=== PATIENT | female | born 1985 | race Caucasian/White ===

== ENCOUNTER 2016-04-12 05:24 | Inpatient (IN) | payer OTHER, MEDICAID ==
[2016-04-12] MEDS ORDERED: LIDOCAINE 1% 30 ML VIAL (PRESERVATIVE FREE) ONE (05:36)
[2016-04-12] MEDS ORDERED: LR 1,000 ML IV ONE (05:36)
[2016-04-12] MEDS ORDERED: OXYTOCIN 1,000 ML IV ONE ×2 (05:36→12:53)
[2016-04-12] MEDS ORDERED: Clindamycin 900 mg/D5W 50 ml 900 MG/50 ML IVB IV SCH (05:37)
[2016-04-12] MEDS ORDERED: LR 500 ML IV PRN ×2 (05:37→11:53)
[2016-04-12] MEDS ORDERED: OXYTOCIN 1,000 ML IV SCH (05:37)
[2016-04-12 06:04] VITALS: BMI 21.0
[2016-04-12 06:10] LABS: AUTOMATED BASOPHIL 0.8 % (0-2); AUTOMATED LYMPH 23.3 % (17-44); AUTOMATED MONOCYTE 9.2 % (3-10); AUTOMATED NEUTROPHIL 63.7 % (45-76); MPV 8.6 fL (7.4-10.4)
[2016-04-12] MEDS ORDERED: Vaccine Screening Complete SCH (08:00)
--- NOTE | 2016-04-12 09:20 | HISTPHYS ---
- HISTORY OF PRESENT ILLNESS Age: 30 Estimated Due Date: 04/17/16 Gestational Age: 39 : 3 Para: 2 Patient Presents to:: Labor & Delivery Presents for:: Induction of Labor Current : GBS +, Other Complications (fetus with 2 vessel cord) - REVIEW OF SYSTEMS Reports/Denies: Reports: Movement. Denies: Vaginal Bleeding, Contractions , Leaking Fluid Pain: Reports: Abdominal - ALLERGIES Allergies Allergy/AdvReac Type Severity Reaction Status Date / Time Penicillins Allergy Severe Unknown Verified 04/12/16 06:06 - PAST MEDICAL HISTORY Reports: Mental Illness (depression) - PAST SURGICAL HISTORY Reports: None - SOCIAL HISTORY Smoking Status: Former smoker Social History: Denies: Amphetamine Use, Alcohol Use, Barbiturate Use, Benzodiazipine Use, Cocaine Use, Heroin Use, Marijuana Use, Methadone Use, MDMA (Ecstasy) Use, Substance Use Disorder - GENITOURINARY HISTORY HX : 3 Para: 2 Live Deliveries (# of pregnancies resulting in a live ): 2 1 Weight: 6 14 2 Sex: Female Weight: 6-14 Weeks Gestation: 36 - PHYSICAL EXAM Vital Signs:: Temperature: 97.8 F (04/12/16 06:04) HR: 82 (04/12/16 06:04) RR: 20 (04/12/16 06:04) BP: 105/61 (04/12/16 06:04) Pulse Ox: () 04/12/16 05:50 GENERAL: Alert, Oriented, No Acute Distress HEENT: Normal ABDOMEN: Gravid, Non-Distended, Non-Tender, Soft Fundal Height (cm): 39 GENITOURINARY: Normal. negative: Lesions, Rash MUSCULOSKELETAL: Normal EXTERMITIES: Moves All Extremeties BAKARI'S SIGN: negative: Bilateral Dilation (cm): 4 Effacement (%): 70 Station: -1 Heart Rate: 150's Reactive Contractions: Regular Membranes: AROM (clear fluid) Amniotic Fluid: Clear - ASSESSMENT (ACTIVE PROBLEMS) (1) 39 weeks gestation of Acute Z3A.39 - 39 WEEKS GESTATION OF (2) Elective induction of labor planned Acute [id number] - (3) GBS (group B Streptococcus carrier), +RV culture, currently Acute O99.820 - STREPTOCOCCUS B CARRIER STATE COMPLICATING - PLAN Continue Present Management, Amniotomy, GBS Prophylaxis, High Dose Pitocin
[2016-04-12] MEDS ORDERED: BUTORPHANOL 1 MG/ML VIAL IV PRN (09:54)
[2016-04-12] MEDS ORDERED: BUTORPHANOL 1 MG/ML VIAL ONE (09:58)
[2016-04-12] MEDS ORDERED: LIDOCAINE 2% 10 ML (PRESERVATIVE FREE) VIAL INF ONE (10:00)
--- NOTE | 2016-04-12 11:20 | OBGYNPROG ---
- Exam Monitor Mode: External(US) Heart Rate: 140's Moderate Variability, Accelerations (occasional) Contraction Pattern: Regular Contraction Frequency: q 2-3 min Vaginal Bleeding: None Dilation (cm): 6.5 Effacement (%): 90 Station: -1 Membranes: AROM Amniotic Fluid: Clear - Plan Continue High Dose Pitocin pt offered epidural, but is still thinking about it
[2016-04-12] MEDS ORDERED: Fentanyl/Bupivacaine 100 ML EPI ONE (11:23)
[2016-04-12] MEDS: LR 1,000 ML IV SCH ×2 (11:49→19:35)
[2016-04-12] MEDS ORDERED: LR 500 ML IV ONE (11:53)
[2016-04-12] MEDS ORDERED: NALOXONE 0.4 MG/ML AMPULE IV PRN (11:53)
[2016-04-12] MEDS ORDERED: ONDANSETRON HCL 4 MG/2 ML VIAL IV PRN (11:53)
[2016-04-12] MEDS ORDERED: METOCLOPRAMIDE 10 MG/2 ML VIAL IV PRN (11:53)
[2016-04-12] MEDS ORDERED: DIPHENHYDRAMINE 50 MG/ML VIAL IV PRN (11:53)
[2016-04-12] MEDS ORDERED: EPHEDrine 50 MG/ML VIAL IV PRN (11:53)
--- NOTE | 2016-04-12 11:54 | HIM.ANES ---
Anesthesia Evaluation & Plan - Focused Review of Systems Cardiac History: No: Hx Cardiac Disorders HEENT: Yes: Hx Vision Problem (wears glasses), Other HEENT Problems Hx Other HEENT Surgery: wisdom teeth Respiratory: Yes: Hx Asthma (asthma as a child-no current rx) Gastrointestinal: Yes: Hx Gastroesophageal Reflux Disease, Hx Gastrointestinal Disorders, Hx Chronic Constipation Neurological/Musculoskeletal: Yes: Hx Migraine, Hx Back Pain No: Hx Neurological Disorders Psychological: Yes Hx Anxiety, Yes Hx Depression, Yes Hx Mental/Emotional Disorders HX Other Psyco/Soc Problems: PREVIOUSLY ON MEDS FOR BOTH Blood/Autoimmune: Yes: Hx Anemia (take iron) No: Hx AIDS, Hx Hepatitis (type) Smoking Status: Former smoker Past Social History: Denies: Amphetamine Use, Alcohol Use, Barbiturate Use, Benzodiazipine Use, Cocaine Use, Heroin Use, Marijuana Use, Methadone Use, MDMA (Ecstasy) Use, Substance Use Disorder Surgical History: Yes: T&A (6 year old) Other Surgical History: wisdom teeth wisdom teeth removed 2004 - Focused Physical Exam Mallampati: Class II Thyromental Distance: Greater than 3 Neck: Full Range of Motion Dental: Normal - no significant findings Cardiovascular/Chest: Normal Respiratory: Lungs clear Any problems with anesthesia, including nausea and vomiting?: No Any relatives with a history of Malignant Hyperthermia?: No Other: Problem List Problem Status Onset 39 weeks gestation of Acute Elective induction of labor planned Acute GBS (group B Streptococcus carrier), +RV culture, currently Acute Abdominal pain in Acute Cervicitis Acute Dehydration Acute False labor after 37 completed weeks of gestation Acute Ketonuria Acute Nausea and vomiting in Acute Placental abruption, delivered Acute Acute Vaginal delivery Acute CBC/BMP/Other 04/12/16 05:50 Allergies Allergy/AdvReac Type Severity Reaction Status Date / Time Penicillins Allergy Severe Unknown Verified 04/12/16 06:06 Home Medications Medication Instructions Recorded Last Taken Type Vits W-Ca,Fe,FA(<1Mg) 1 each PO DIR 12/28/15 04/12/16 03:00 History [] Y Ferrous Sulfate [Feratab] 300 mg PO DAILY 01/28/16 04/12/16 03:00 History Y Ergocalciferol (Vitamin D2) 400 unit PO DAILY 03/12/16 04/12/16 03:00 History [Vitamin D] Y Ranitidine HCl [Zantac] 150 mg PO BID 04/05/16 04/12/16 History Y Height and Weight Patient's height 5 ft 2 in Patient's weight 61.235 kg BMI 21.0 Vital Signs Temperature 97.8 F 04/12/16 06:04 Pulse Rate 82 04/12/16 06:04 Respiratory Rate 20 04/12/16 06:04 Blood Pressure 105/61 04/12/16 06:04 Pulse Oxygen Saturation - Anesthetic Plan Anesthesia Type: Epidural ASA Class: 2 -: I have examined this patient and reviewed the medical record. The patient has been assessed prior to anesthesia. Risks and benefits of anesthesia and anesthetic technique options have been discussed and all questions answered. The patient accepts the risk and desires me to proceed with the planned anesthetic.
--- NOTE | 2016-04-12 11:55 | HIM.ANESP ---
Procedure Note DATE OF PROCEDURE: 04/12/16 PREOPERATIVE DIAGNOSIS: Labor Pain Control. POSTOPERATIVE DIAGNOSIS: Same PROCEDURE: Epidural PERFORMING PROVIDER: Ehsan Kenyon MD DIAGNOSIS: Labor SURGEON: Deric[] TIME OUT: [1131] Anesthesia START time: [1132] Anesthesia STOP (Delivery) Time : MEDICATIONS: INF Bupivacaine 0.125% + Fentanyl 3mcg/ml ml/hr NEEDLE: Tuohy 17G STERILE BARRIERS: sterile x 3, mask, sterile gloves. APPROACH: [Midline] ATTEMPTS:[1] COMPLICATIONS: None. BLOOD LOSS: 0 cubic centimeters. PROCEDURE FINDINGS AND TECHNIQUE: At the request of the patient and feather separator , an Epidural Block was performed for labor pain relief. Epidural Risk, benefits and alternatives of the procedure were explained and questions answered. Informed consent was obtained, confirmed with patient and on chart. Time out was performed. Contraction, Pulse oximetry, EKG and BP monitoring were established. The patient is a [sitting] position and lumbar area was prepped and draped in a sterile manner. Skin anesthesia was obtained with 1% Xylocaine infiltration. The [Epidural]was done in the usual manner. A Tuohy needle was inserted with loss of resistance to [NS][air] @ [7]cm. Local anesthetic was injected in incremental volumes with negative aspirations throughout, Bolus dose: Lidocaine [2] % [8] cc. There was no pain on injection. Epidural catheter threaded [5] cm into epidural space. Test dose Lidocaine 1.5 % with epinephrine 1:200,000, 3 ml via epidural catheter. Negative test dose. SaO2 [98]% EKG SR Loading Dose 0 mcg/ml Fentanyl Infusing Dose Bupivacaine 0.125% + Fentanyl 3mcg/ml ml/hr See Watch Child Record (chart) Patient tolerated the procedure well without complications.
[2016-04-12] MEDS ORDERED: Fentanyl/Bupivacaine 100 ML EPI SCH (12:00)
--- NOTE | 2016-04-12 12:50 | OBDELNOTE ---
Delivery Note - Problem/Diagnosis (1) 39 weeks gestation of Status: Acute (2) Elective induction of labor planned Status: Acute (3) GBS (group B Streptococcus carrier), +RV culture, currently Status: Acute (4) Single live Status: Acute (5) Vaginal delivery Status: Acute - Admitting Diagnosis Reason for Visit: Induction of Labor Admission Date: 04/12/16 Admission time: 05:46 Gestational Age: 39 - Procedures Procedure(s): None Labor Anesthesia/Analgesia: Epidural Date: 04/12/16 Time: 12:39 Spontaneous Vaginal Delivery Presentation: Vertex Episiotomy: None Laceration: None EBL: 200 Fluid: Clear Placenta: Spontaneous Description: Normal, Complete Cord: 2 Vessels. Denies: Nuchal Cord, True Knot - Procedures Procedures: None - Data Order: Mckeon Sex: Female Weight: 3.079 kg (1min): 9 (5min): 9 Feeding Plans for : Breast Plans Circumcision: No [place] Complications: No Complications to:: LDRP/Mother's Room - /Operative Complications /Op Complications: None Discharge Planning - REASON FOR ADMISSION Patient Presents to:: Labor & Delivery Reason for Visit: Induction of Labor - DISCHARGE INSTRUCTIONS
[2016-04-12] MEDS ORDERED: SODIUM CHLORIDE 0.9% 3 ML FLUSH FLUSH PRN (12:53)
[2016-04-12] MEDS ORDERED: DIBUCAINE OINTMENT 1 OZ TUBE TOP PRN (12:53)
[2016-04-12] MEDS ORDERED: ACETAMINOPHEN 325 MG/TAB TABLET PO PRN (12:53)
[2016-04-12] MEDS ORDERED: LANOLIN OINTMENT 0.25 OZ TUBE TOP PRN (12:53)
[2016-04-12] MEDS ORDERED: BISACODYL 10 MG SUPP PR PRN (12:53)
[2016-04-12] MEDS ORDERED: HYDROCORTISONE 25 MG SUPP PR PRN (12:53)
[2016-04-12] MEDS ORDERED: ZOLPIDEM TARTRATE 5 MG TAB PO PRN (12:53)
[2016-04-12] MEDS ORDERED: OXYCODONE HCL 5 MG TABLET PO PRN (12:53)
--- NOTE | 2016-04-12 12:53 | PCM.DCS92 ---
<Julius Leos - Last Filed: 04/12/16 12:50> - Primary/Secondary Discharge Diagnoses (1) 39 weeks gestation of Acute Z3A.39 - 39 WEEKS GESTATION OF (2) Elective induction of labor planned Acute [id number] - (3) GBS (group B Streptococcus carrier), +RV culture, currently Acute O99.820 - STREPTOCOCCUS B CARRIER STATE COMPLICATING (4) Single live Acute Z37.0 - SINGLE LIVE (5) Vaginal delivery Acute O80 - ENCOUNTER FOR FULL-TERM UNCOMPLICATED DELIVERY - HOSPITAL COURSE /Op Complications: None - DISCHARGE INSTRUCTIONS Discharge Disposition: Home Discharge Condition: Good Cognitive Discharge Status: Unimpaired Fuctional Discharge Status: Independent Patient Leaving with Prescriptions?: Yes Prescriptions: Ibuprofen Tablet [Motrin] 800 mg PO Q6-8H PRN #30 tab PRN Reason: Pain Oxycodone HCl/Acetaminophen [Percocet 5-325 mg Tablet] 1 - 2 tab PO Q4H PRN #10 tab PRN Reason: Pain Referrals: Julius Leos MD [Staff Physician] - 05/26/16 10:15 am - Diet Diet at Discharge: Regular - Activity Activity: Pelvic Rest (6-8 weeks) No Driving for: While using pain medications (especially percocet) - Instructions Call Physician for: Sudden/Sever Chest Pain, Pain/Redness in Calf/Leg, Temperature Above 100.4 Discontinue use of:: Alcohol, All Illegal Substances, All Types of Tobacco - Incision Incision, Lacerations, or Tears: No - DC Summary Notes Discharge Medications: *See "Discharge Medication List" for a complete list of Home Medications and Discharge Medications.* Obstetric Hospital Course - Admitting Diagnosis Reason for Visit: Induction of Labor Admission Date: 04/12/16 Admission time: 05:46 Gestational Age: 39 - Procedures Procedure(s): None Labor Anesthesia/Analgesia: Epidural Date: 04/12/16 Time: 12:39 Spontaneous Vaginal Delivery Presentation: Vertex Episiotomy: None Laceration: None EBL: 200 Fluid: Clear Placenta: Spontaneous Description: Normal, Complete Cord: 2 Vessels. Denies: Nuchal Cord, True Knot - Procedures Procedures: None - Data Order: Mckeon Infant Sex: Female Weight: 3.079 kg (1min): 9 (5min): 9 Feeding Plans for : Breast Plans Circumcision: No Complications: No Complications [place] to:: LDRP/Mother's Room - /Operative Complications /Op Complications: None <Varsha Kaur - Last Filed: 04/13/16 09:47> - DC Summary Notes Discharge Medications: *See "Discharge Medication List" for a complete list of Home Medications and Discharge Medications.*
[2016-04-12] MEDS ORDERED: Pharmacy Order Set Alert SCH (13:00)
[2016-04-12] MEDS: IBUPROFEN 800 MG TAB PO SCH ×2 (13:52→20:28)
[2016-04-12] MEDS ORDERED: SODIUM CHLORIDE 0.9% 3 ML FLUSH FLUSH SCH (18:00)
[2016-04-12] MEDS ORDERED: FERROUS SULFATE 324 MG TAB PO SCH (18:00)
[2016-04-12] MEDS ORDERED: LR 1,000 ML IV SCH (19:53)
[2016-04-12] MEDS ORDERED: Docusate Sodium 100 MG CAP PO SCH (21:00)
[2016-04-12 23:10] VITALS: PULSE 75
[2016-04-12] MEDS ORDERED: SIMETHICONE 80 MG TAB PO ONE (23:25)
[2016-04-13] MEDS: IBUPROFEN 800 MG TAB PO SCH ×2 (03:14→08:47)
[2016-04-13 05:25] VITALS: BP 102/59; TEMP 97.6
[2016-04-13] MEDS ORDERED: ONDANSETRON HCL 4 MG/2 ML VIAL IV PRN (08:16)
--- NOTE | 2016-04-13 09:47 | OBGYNPROG ---
- Subjective Post Day: 1 Reports: Ambulating, Out of Bed, Tolerating Regular Diet, Voiding Freely. Denies: Complaints Pain: Reports: Well Managed - Objective Vital Signs: Temperature: 97.6 F (04/13/16 05:23) HR: 75 (04/13/16 05:23) RR: 18 (04/13/16 05:23) BP: 102/59 (04/13/16 05:23) Pulse Ox: () Laboratory Results - last 24 hr 04/12/16 04/13/16 05:50 06:25 Hgb 8.5 L Hct 26.1 L RPR Nonreactive General: Alert, Oriented, No Acute Distress HEENT: Normal Cardiovascular/Chest: Normal Respiratory: Normal - CTA ABDOMEN: Soft MUSCULOSKELETAL: Normal EXTERMITIES: Moves All Extremeties. Denies: Edema OBGYN Progress Note - PLAN Routine Care, Discharge
[2016-04-13] MEDS ORDERED: VITAMINS,PRENATAL TABLET PO SCH (12:00)
== END 2016-04-13 16:23 | disposition home or self-care (01) | DRG 775 ==
LOC: MASU 05:24
PROVIDERS: ADMIT Obstetrics & Gynecology; ATTEND Obstetrics & Gynecology
PROC: 10E0XZZ Delivery of Products of Conception, External Approach (ICD-10-PCS; principal; 2016-04-12)
PROC: 3E0S3CZ (ICD-10-PCS; 2016-04-12)
PROC: 10907ZC Drainage of Amniotic Fluid, Therapeutic from Products of Conception, Via Natural or Artificial Opening (ICD-10-PCS; 2016-04-12)
DX: O99.824 Streptococcus B carrier state complicating childbirth (principal); Z37.0 Single live birth; Z3A.39 39 weeks gestation of pregnancy; Z87.891 Personal history of nicotine dependence
CPT/HCPCS: 59400; 62318; 81002; 85014; 85018; 85025; 86592; 86900; 86901; 96361; 96365; 96366; 96368; 96375; J0595; J2001; J2405; J2590; J3490; S0077

== ENCOUNTER 2016-04-15 14:42 | Observation (INO) | payer OTHER, MEDICAID ==
[2016-04-15 15:19] VITALS: BMI 24.1
[2016-04-15 15:35] LABS: AUTOMATED BASOPHIL 0.5 % (0-2); AUTOMATED EOSINOPHIL 3.5 % (0-5); AUTOMATED LYMPH 17.5 % (17-44); AUTOMATED MONOCYTE 6.9 % (3-10); AUTOMATED NEUTROPHIL 71.6 % (45-76); MPV 8.1 fL (7.4-10.4)
[2016-04-15 15:43] LABS: BLOOD UREA NITROGEN 7 MG/DL (7-17); CALC CORRECTED 9.2 MG/DL (8.4-10.2); CALCIUM 8.7 MG/DL (8.4-10.2); CALCULATED OSMOLALITY 260 MOs/Kg (270-290); CHLORIDE 101 mEq/L (98-107); GLUCOSE 92 MG/DL (70-99); SODIUM LEVEL 136 mEq/L (137-146); TOTAL PROTEIN 6.6 G/DL (6.3-8.2)
[2016-04-15] MEDS ORDERED: NS 1,000 ML IV ONE ×3 (15:45→22:35)
[2016-04-15] MEDS ORDERED: PROMETHAZINE 25 MG/ML VIAL IV ONE ×2 (15:45→19:40)
--- NOTE | 2016-04-15 15:51 | EDPRACDOC ---
- General Information Chief Complaint: Nausea,Vomiting,Diarrhea Stated Complaint: 3 DAYS - VOMITING/FEVER Time Seen by Provider: 04/15/16 15:34 Information Source: Patient, Family Mode Of Arrival: Car Home Medications: Home Medications Vits W-Ca,Fe,FA(<1Mg) [] 1 tab PO DAILY 12/28/15 Ergocalciferol (Vitamin D2) [Vitamin D] 400 unit PO DAILY 03/12/16 Ranitidine HCl [Zantac] 150 mg PO BID 04/05/16 Ibuprofen Tablet [Motrin] 800 mg PO Q6-8H PRN #30 tab 04/12/16 Oxycodone HCl/Acetaminophen [Percocet 5-325 mg Tablet] 1 - 2 tab PO Q4H PRN #10 tab 04/12/16 Ferrous Sulfate [Feosol] 325 mg PO DAILY 04/15/16 Ondansetron HCl [Zofran] 4 mg PO Q6H PRN 04/15/16 Promethazine [Phenergan] 25 mg PO Q8H PRN #10 tab 04/15/16 Allergies/Adverse Reactions: Allergies Allergy/AdvReac Type Severity Reaction Status Date / Time Penicillins Allergy Severe Unknown Verified 04/15/16 15:19 - History of Present Illness Onset: 3 days HPI: Patient reports she had a vaginal delivery 3 days ago, discharged yesterday, reports nausea/vomiting since. Has called OB who called in Zofran which has not helped per patient. States unable to tolerate liquid diet. Denies abdominal pain , states all of the vomiting is making her feel weak, reports fever of 99.7F. Symptoms Occured: Reports: Spontaneous Duration: Reports: Episodes of Vomiting Emesis: Reports: Bilious, Food Particles Pain Severity: 2 Pain Location: Reports: Diffuse : No History of: Reports: UTI Associated Signs & Symptoms: Reports: Nausea, Vomiting. 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 Denies: Substance Use Disorder Systemic History: Reports: Anemia (take iron). Denies: Cancer Surgical History: Reports: Tonsillectomy/Adnoidectomy (6 year old). Denies: Hysterectomy - Family Medical History Reports: Diabetes (MGF), Cancer (FATHER, PGM), Stroke (MGF). Denies: Hypertension, Cardiac Disorders - Social Medical History Smoking Status: Former smoker Social History: Denies: Amphetamine Use, Barbiturate Use, Benzodiazipine Use, Cocaine Use, Heroin Use, Marijuana Use, Methadone Use, MDMA (Ecstasy) Use, Substance Use Disorder ETOH: None Substance Abuse: None Lives In: Home EDM Review of Systems - Review of Systems ROS Negative Except as Marked: Yes All systems reviewed and were negative except as marked Constitutional: Fatigue Eyes: No Symptoms Reported Ears: No Symptoms Reported Throat: No Symptoms Reported Respiratory: No Symptoms Reported Cardiovascular: No Symptoms Reported Gastrointestinal: Nausea, Pain, Vomiting Musculoskeletal: No Symptoms Reported Integumentary: No Symptoms Reported - Physical Exam Constitutional: Alert (Awake), No apparent distress Oriented to: Time, Person, Place Last recorded Vital Signs: Last Vital Signs Temp 98.6 F 04/15/16 15:14 Pulse 71 04/15/16 15:14 Resp 18 04/15/16 15:14 BP 130/60 04/15/16 15:14 Pulse Ox 96 04/15/16 15:14 Oxygen Pulse Oxygen Saturation 96 O2 Device Oxygen Flow Rate Fraction of Inspired Oxygen ( FIO2) - HEENT Head: Normal ( normocephalic) Eye Exam: Normal (PERRL, EOMI, Sclera white) Nose: No Symptoms Reported (septum midline) Neck: Normal (FROM, trachea at midline) - Respiratory/Cardiovascular Respiratory: Normal - CTA (BBS clear to auscultation without adventitious sounds ) Cardiovascular: Normal (RRR without murmur, gallop or rub) - GI Auscultation: Normal (NABS) Tenderness: Diffuse, Mild - Musculoskeletal Back: Normal (Non-Tender) Extremities: Normal (Normal tone, Pulses 2+ No cyanosis or edema, FROM) - Integumentary Skin: Normal, Warm, Dry Lymphatics: Normal (no adenopathy) - Neurologic Memory Impaired: Normal Motor Function: Normal (Normal tone, Pulses 2+ No cyanosis or edema, FROM) Mood Description: Normal - Re-evaluation Re-evaluation 1 Re-evaluation Time: 17:[address] Ware - BP is WNL, slightly elevated LFTs does not sound like OB related issue or post pre-eclampsia. May d/c home with nausea meds - has Zofran, feed before use of Phenergan. Followup. Patient feeling better tolerating by mouth fluids. - Results 04/15/16 15:25 04/15/16 15:25 WBC 10.8 xk/uL (3.8-10.8) 04/15/16 15:25 RBC 3.39 xM/uL (4.20-5.40) L 04/15/16 15:25 Hgb 9.1 g/dL (12.0-16.0) L 04/15/16 15:25 Hct 27.6 % (36-47) L 04/15/16 15:25 MCV 81 fL (81-99) 04/15/16 15:25 MCH 26.8 pg (27-32) L 04/15/16 15:25 MCHC 32.9 g/dl (33-36) L 04/15/16 15:25 RDW 15.6 % (11.5-14.5) H 04/15/16 15:25 Plt Count 294 xk/uL (130-400) 04/15/16 15:25 MPV 8.1 fL (7.4-10.4) 04/15/16 15:25 Neut % (Auto) 71.6 % (45-76) 04/15/16 15:25 Lymph % (Auto) 17.5 % (17-44) 04/15/16 15:25 Addison % (Auto) 6.9 % (3-10) 04/15/16 15:25 Eos % (Auto) 3.5 % (0-5) 04/15/16 15:25 Baso % (Auto) 0.5 % (0-2) 04/15/16 15:25 Absolute Neuts (auto) 7.67 xk/uL (1.7-8.2) 04/15/16 15:25 Absolute Lymphs (auto) 1.84 xk/uL (0.65-4.75) 04/15/16 15:25 Lab Results 04/15/16 15:25 WBC 10.8 RBC 3.39 L Hgb 9.1 L Hct 27.6 L MCV 81 MCH 26.8 L MCHC 32.9 L RDW 15.6 H Plt Count 294 MPV 8.1 Neut % (Auto) 71.6 Lymph % (Auto) 17.5 Addison % (Auto) 6.9 Eos % (Auto) 3.5 Baso % (Auto) 0.5 Absolute Neuts (auto) 7.67 Absolute Lymphs (auto) 1.84 Decision Time to Discharge: 17:54 - Departure Disposition: Home Condition: Improved Final Diagnosis: Nausea and vomiting Instructions: Acute Nausea and Vomiting (ED) Education/Counseling Given To: Patient Education/Counseling Given Regarding: Diagnosis, Treatment, Prognosis, Follow Up Referrals: Cyn Weldon NP [Primary Care Provider] - One Week Julius Leos MD [Staff Physician] - One Week Prescriptions: Promethazine [Phenergan] 25 mg PO Q8H PRN #10 tab PRN Reason: Nausea/Vomiting Additional Instructions: Please followup with PCP in 1-2days. Return to ED if symptoms worsen/change or concerns arise. Drink plenty of fluids, nausea medication at home as needed. Breastfeed before Phenergan as discussed as it will make the baby sleepy.
[2016-04-15 15:54] LABS: AMORPHOUS OCC; RBC/URINE TNTC (0-5)
[2016-04-15 15:55] LABS: LEUKOCYTES/URINE NEG (NEGATIVE); NITRITE/URINE NEG (NEGATIVE); URINE OCCULT BLOOD 2+ (NEG/TRACE)
[2016-04-15] MEDS ORDERED: ONDANSETRON HCL 4 MG/2 ML VIAL IV ONE ×2 (17:21→22:34)
[2016-04-15] MEDS ORDERED: PANTOPRAZOLE 40 MG VIAL IV ONE (17:53)
[2016-04-15] MEDS ORDERED: Pharmacy Review for Metformin - IV Contrast Given SCH (22:00)
--- NOTE | 2016-04-15 22:23 | DIRPT ---
CLINICAL DATA: 30-year-old female with abdominal pain and vomiting since delivery EXAM: CT ABDOMEN AND PELVIS WITH CONTRAST TECHNIQUE: Multidetector CT imaging of the abdomen and pelvis was performed using the standard protocol following bolus administration of intravenous contrast. CONTRAST: 80 cc Isovue 370 COMPARISON: CT dated 06/05/2014 FINDINGS: The visualized lung bases are clear. No intra-abdominal free air. Trace free fluid within the pelvis. The liver, gallbladder, pancreas, spleen, adrenal glands, left kidney appear unremarkable. There is a 6 mm nonobstructing right renal inferior pole calculus. There is mild fullness of the right renal collecting system, likely related to compression of the distal right ureter by the uterus. Small left renal hypodense lesions are not characterized but may represent cysts. Ultrasound may provide better characterization if clinically indicated. This hypodensities appear similar to prior study. There is no hydronephrosis on the left. The urinary bladder is predominantly collapsed. The uterus is enlarged measuring up to 16 cm in length likely changes. Correlation with date of delivery recommended. No intrauterine gas identified. There is no fluid collection or abscess. There scattered colonic diverticula without active inflammatory changes. No evidence of bowel obstruction or inflammation. Normal appendix. The abdominal aorta and IVC appear patent. There is a retro aortic left renal vein anatomy. No portal venous gas identified. There is no adenopathy. There is diastases of anterior abdominal wall musculature in the midline with a small fat containing umbilical hernia. The abdominal wall soft tissues are otherwise unremarkable. The osseous structures are intact. IMPRESSION: Large uterus likely changes. No fluid collection/abscess or intrauterine gas identified. Correlation with date of delivery recommended. A 6 mm nonobstructing right renal inferior pole calculus with mild right hydronephrosis likely related to compression of the distal right ureter by the enlarged uterus. No evidence of bowel obstruction or inflammation. Normal appendix. Colonic diverticulosis. Electronically Signed By: Chencho Thompson M.D. On: 04/15/2016 22:20
[2016-04-15] MEDS ORDERED: Vaccine Screening Complete SCH (23:00)
[2016-04-15] MEDS ORDERED: ONDANSETRON HCL 4 MG/2 ML VIAL IV PRN (23:40)
[2016-04-15] MEDS ORDERED: LANOLIN OINTMENT 0.25 OZ TUBE TOP PRN (23:40)
[2016-04-15] MEDS ORDERED: HYDROCODONE 5 MG/ACETAMIN 325 MG TAB PO PRN (23:40)
[2016-04-15] MEDS ORDERED: IBUPROFEN 800 MG TAB PO PRN (23:40)
[2016-04-15] MEDS ORDERED: Pharmacy Order Set Alert SCH (23:40)
[2016-04-16] MEDS: PROMETHAZINE 25 MG/ML VIAL IV PRN ×2 (00:09→05:19)
[2016-04-16 05:22] VITALS: BP 110/62
[2016-04-16] MEDS ORDERED: LR 1,000 ML IV SCH (05:41)
[2016-04-16 06:03] LABS: BLOOD UREA NITROGEN 7 MG/DL (7-17); CALC CORRECTED 8.9 MG/DL (8.4-10.2); CALCIUM 7.7 MG/DL (8.4-10.2); CALCULATED OSMOLALITY 258 MOs/Kg (270-290); CHLORIDE 103 mEq/L (98-107); GLUCOSE 92 MG/DL (70-99); SODIUM LEVEL 135 mEq/L (137-146); TOTAL PROTEIN 5.8 G/DL (6.3-8.2)
[2016-04-16 06:04] LABS: AUTOMATED EOSINOPHIL 0.7 % (0-5); AUTOMATED LYMPH 17.4 % (17-44); AUTOMATED MONOCYTE 6.4 % (3-10); AUTOMATED NEUTROPHIL 74.5 % (45-76); MPV 9.5 fL (7.4-10.4)
[2016-04-16] MEDS ORDERED: PANTOPRAZOLE 40 MG VIAL IV SCH (08:00)
--- NOTE | 2016-04-16 10:01 | HISTPHYS ---
- HISTORY OF PRESENT ILLNESS Age: 30 Patient Presents to:: Emergency Department Presents for:: Nausea/Vomitting Details: Pt is PPD#4 from a routine vaginal delivery. She presented to the ED yesterday with nausea and vomiting despite taking zofran at home. The vomiting began on Tuesday after being discharged from the hospital and it worsened as the days passed. She has been unable to keep anything down. She was admitted overniht for IVF and antiemetics. - REVIEW OF SYSTEMS ROS Negative Except As Marked: Yes ROS Negative except as marked Reports/Denies: Reports: GI Comlaints. Denies: Shortness of Breath, Fever, Chills, Chest Pain, Cardiovascular Complaints, Respiratory Complaints, Genitourinary Complaints Pain: Reports: None - ALLERGIES Allergies Allergy/AdvReac Type Severity Reaction Status Date / Time Penicillins Allergy Severe Unknown Verified 04/15/16 15:19 - CURRENT MEDICATIONS Home Medication List Ferrous Sulfate [Feosol] 325 mg PO DAILY 04/15/16 [History] Ondansetron HCl [Zofran] 4 mg PO Q6H PRN 04/15/16 [History] [place] Medications Promethazine [Phenergan] 25 mg PO Q8H PRN #10 tab 04/15/16 [Rx] - PAST MEDICAL HISTORY Reports: No Significant History - PAST SURGICAL HISTORY Bladder stretching - SOCIAL HISTORY Smoking Status: Former smoker Social History: Denies: Amphetamine Use, Alcohol Use, Barbiturate Use, Benzodiazipine Use - GENITOURINARY HISTORY Gynecologic History: Reports: None 1 Weight: 6 14 2 Weight: 6-14 - PHYSICAL EXAM Vital Signs:: Temperature: 98.4 F (04/16/16 05:21) HR: 65 (04/16/16 05:21) RR: 20 (04/16/16 05:21) BP: 110/62 (04/16/16 05:21) Pulse Ox: 98 (04/15/16 23:26) GENERAL: Alert, Oriented, No Acute Distress CARDOVASCULAR/CHEST: Normal RESPIRATORY: Normal - CTA ABDOMEN: Bowel Sounds Present, Non-Tender, Soft. negative: Guarding, Rigidity EXTERMITIES: Moves All Extremeties. negative: Edema BAKARI'S SIGN: negative: Bilateral - ASSESSMENT (ACTIVE PROBLEMS) (1) Nausea and vomiting Acute R11.2 - NAUSEA WITH VOMITING, UNSPECIFIED - PLAN Admit Other Plan: Pt with improved symptoms. Will try PO antiemetic and regular diet. IF pt able to tolerate diet, will discharge home.
[2016-04-16] MEDS ORDERED: METOCLOPRAMIDE 10 MG TAB PO ONE (10:15)
[2016-04-16 10:18] VITALS: PULSE 51; TEMP 98.8
--- NOTE | 2016-04-21 09:49 | PCM.DCS92 ---
- Primary/Secondary Discharge Diagnoses (1) Nausea and vomiting Acute R11.2 - NAUSEA WITH VOMITING, UNSPECIFIED - HOSPITAL COURSE Pt was admitted on PPD#3 due to nausea and vomiting. She received IVF and IV antiemetics. She was discharged home the next day with her symptoms improved on PO reglan. She is to keep her routine PP appointment at [facility]. - DISCHARGE INSTRUCTIONS Discharge Disposition: Home Discharge Condition: Improved Cognitive Discharge Status: Unimpaired Fuctional Discharge Status: Independent Home Medications/ New Prescriptions: New Promethazine [Phenergan] 25 mg PO Q8H PRN #10 tab PRN Reason: Nausea/Vomiting Metoclopramide HCl [Reglan] 10 mg PO Q8 PRN #30 tab PRN Reason: Nausea No Action Vits W-Ca,Fe,FA(<1Mg) [] 1 tab PO DAILY Ergocalciferol (Vitamin D2) [Vitamin D] 400 unit PO DAILY Ranitidine HCl [Zantac] 150 mg PO BID Ibuprofen Tablet [Motrin] 800 mg PO Q6-8H PRN #30 tab PRN Reason: Pain Oxycodone HCl/Acetaminophen [Percocet 5-325 mg Tablet] 1 - 2 tab PO Q4H PRN # 10 tab PRN Reason: Pain Ondansetron HCl [Zofran] 4 mg PO Q6H PRN PRN Reason: Nausea/Vomiting Ferrous Sulfate [Feosol] 325 mg PO DAILY - Diet Diet at Discharge: [place] - Activity Activity: As Tolerated Other Activity Instructions: keep scheduled 6 week follow up appointment. Follow up with [facility] if problems arise prior to 6 week appointment. - Instructions Call Physician for: Sudden/Sever Chest Pain, Foul Smelling Discharge, Pain/ Redness in Calf/Leg Additional Instructions: Keep scheduled follow up appointment.. - DC Summary Notes Discharge Medications: *See "Discharge Medication List" for a complete list of Home Medications and Discharge Medications.* Obstetric Hospital Course - Admitting Diagnosis Reason for Visit: Nausea/Vomitting Admission Date: 04/15/16 Admission time: 23:40 Gestational Age: 40 - Data Feeding Plans for : Breast
== END 2016-04-16 15:19 | disposition home or self-care (01) ==
LOC: ED 14:42 → MASU 22:39
PROVIDERS: ADMIT Obstetrics & Gynecology; ATTEND Obstetrics & Gynecology
DX: O90.89 Other complications of the puerperium, not elsewhere classified (principal); R11.2 Nausea with vomiting, unspecified; Z87.891 Personal history of nicotine dependence; Z87.442 Personal history of urinary calculi; Z87.440 Personal history of urinary (tract) infections
CPT/HCPCS: 36415; 74177; 80053; 81001; 82150; 83690; 85025; 96361; 96374; 96375; 96376; 99284; A9698; G0378; J2405; J2550; J3490; S0164